=== PATIENT | female | born 1990 | race Caucasian/White ===

== ENCOUNTER → 2018-02-04 | Outpatient (CLI) | payer BC ==
[~2018-02-04] MED LIST: LEVAQUIN500 MG PO; ORTHO TRI-CY1 TABLE1 PO; TESSALON PERLE100 MG PO
== END | disposition home or self-care (01) ==
LOC: NUC 01-09 07:00
DX: R10.13 Epigastric pain (principal)
CPT/HCPCS: 78227; A9537; J2805